=== PATIENT | male | born 1965 | race Caucasian/White ===

== ENCOUNTER → 2018-04-26 02:23 | Emergency (ER) | payer BC ==
[~2018-04-26 02:23] MED LIST: Acetaminophen TAB* 325 MG PO ONE
--- NOTE | 2018-04-26 02:47 | ED ---
Head Injury - HPI Summary HPI Summary: This patient is a 52 year old M presenting to [facility] with a chief complaint of head injury since 18:00 on 04/25/2018. While hiking, he stood up and hit his head on a tree limb. The patient rates the pain 7/10 in severity. Patient reports an abrasion on his head, "feeling dazed," a frontal headache, and light sensitivity. Patient denies LOC and vomiting. He is not on any anticoagulants. - History Of Current Complaint Chief Complaint: EDHeadInjury Stated Complaint: HEAD INJURY Time Seen by Provider: 04/26/18 02:34 Hx Obtained From: Patient Mechanism Of Injury: Blunt Trauma Onset/Duration: Started Hours Ago - 18:00 on 04/25/2018, Traumatic, Still Present Onset of Pain: Immediate, Post Accident Severity Currently: Moderate Severity Initially: Moderate Pain Intensity: 7 Pain Scale Used: 0-10 Numeric Aggravating Factor(s): Other: - Light Associated Signs And Symptoms: LOC (Time In Secs./Mins/Hrs) - Denies, LOC Duration Unknown - Denies, Headache - frontal, Other: - "feeling dazed," abrasion on his head, light sensitivity - Allergies/Home Medications Allergies/Adverse Reactions: Allergies Allergy/AdvReac Type Severity Reaction Status Date / Time No Known Allergies Allergy Verified 04/26/18 02:30 PMH/Surg Hx/FS Hx/Imm Hx Endocrine/Hematology History: Denies: Hx Diabetes, Hx Thyroid Disease Cardiovascular History: Denies: Hx Hypertension Respiratory History: Reports: Hx Asthma, Hx Sleep Apnea - previous hx SANDRITA, never treated, re-evaluation fo 08/2013 Denies: Hx Chronic Obstructive Pulmonary Disease (COPD) GI History: Denies: Hx Ulcer Musculoskeletal History: Reports: Other Musculoskeletal History - LEFT KNEE Sensory History: Reports: Hx Contacts or Glasses - GLASSES Denies: Hx Hearing Aid Opthamlomology History: Reports: Hx Contacts or Glasses - GLASSES Psychiatric History: Reports: Hx Depression - Wellbutrin - Surgical History Surgery Procedure, Year, and Place: lt knee surgery a year ago Hx Anesthesia Reactions: No Infectious Disease History: No Infectious Disease History: Denies: Hx Hepatitis, Hx Human Immunodeficiency Virus (HIV), Traveled Outside the [place] in Last 30 Days - Family History Known Family History: Negative: Cardiac Disease, Hypertension, Diabetes - Social History Alcohol Use: None Substance Use Type: Reports: None Review of Systems Positive: Other - "feeling dazed" Negative: Vomiting Positive: Other - Abrasion on his head Neurological: Other - Light sensitivity Positive: Headache - Frontal HUMPHREY. Negative: Syncope All Other Systems Reviewed And Are Negative: Yes Physical Exam - Summary Physical Exam Summary: VITAL SIGNS: Reviewed. GENERAL: Patient is a well-developed and nourished MALE who is lying comfortable in the stretcher. Patient is not in any acute respiratory distress. HEAD AND FACE: Mild swollen area with abrasion over the vertex of his head. No sinus tenderness. EYES: PERRLA, EOMI x 2, No injected conjunctiva, no nystagmus. EARS: Hearing grossly intact. Left ear has cerumen impaction. Right ear is normal. MOUTH: Oropharynx within normal limits. NECK: Supple, trachea is midline, no adenopathy, no JVD, no carotid bruit, no c- spine tenderness, neck with full ROM. CHEST: Symmetric, no tenderness at palpation LUNGS: Clear to auscultation bilaterally. No wheezing or crackles. CVS: Regular rate and rhythm, S1 and S2 present, no murmurs or gallops appreciated. ABDOMEN: Soft, non-tender. No signs of distention. No rebound no guarding, and no masses palpated. Bowel sounds are normal. EXTREMITIES: FROM in all major joints, no edema, no cyanosis or clubbing. NEURO: Alert and oriented x 3. No acute neurological deficits. Speech is normal and follows commands. SKIN: Dry and warm Triage Information Reviewed: Yes Vital Signs On Initial Exam: Initial Vitals Temp Pulse Resp BP Pulse Ox 97.3 F 102 16 126/72 99 04/26/18 02:25 04/26/18 02:25 04/26/18 02:25 04/26/18 02:25 04/26/18 02:25 Vital Signs Reviewed: Yes Diagnostics - Vital Signs Vital Signs Temp Pulse Resp BP Pulse Ox 04/26/18 02:25 97.3 F 102 16 126/72 99 - Laboratory Lab Statement: Any lab studies that have been ordered have been reviewed, and results considered in the medical decision making process. - CT Brain CT CT Interpretation Completed By: Radiologist - 03:51. Normal head/brain CT. ED Physician has reviewed this imaging report. Head Injury Course/Dx Assessment/Plan: This patient is a 52 year old M presenting to [facility] with a chief complaint of head injury since 18:00 on 04/25/2018. While hiking, he stood up and hit his head on a tree limb. CT Brain was normal. Patient will be discharged home with a dx of head injury. - Diagnoses Provider Diagnoses: Head injury Discharge - Sign-Out/Discharge Documenting (check all that apply): Patient Departure - D/C - Discharge Plan Condition: Stable Disposition: HOME Patient Education Materials: Head Injury (ED) Referrals: Ruben Barillas MD [Medical Doctor] - 2 Days Additional Instructions: Take Ultram as needed for the pain. RETURN TO THE EMERGENCY DEPARTMENT FOR CHANGING OR WORSENING SYMPTOMS. FOLLOW UP WITH PCP IN 1-2 DAYS. - Attestation Statements Document Initiated by Scribe: Yes Documenting Scribe: Melchor Juarez Provider For Whom Scribe is Documenting (Include Credential): Francesco Veloz MD Scribe Attestation: Melchor Florez, scribed for Francesco Veloz MD on 04/26/18 at 0413.
--- OUTSIDE RECORDS SUMMARY | 2018-04-26 02:47 | XMS REPORT ---
:1965 External Reference #:[id number] Author Organization [facility] Address [address] [place] [address] Phone [phone] Care Team Providers Name Role Phone Mira Prince Care Team Information Brazer Crawler Torch Unavailable Mira Prince Primary Care Physician Unavailable Payers Type Date Identification Numbers Payment Provider Subscriber Commercial Effective: Policy Number: [id number] [place] Plan Ghassan Jarrell 2010 Group Name: [facility] [address] PayID: [id number] [place] [address] Problems Date Description Provider Status Onset: 02/16/2016 Anxiety state Ghassan Elder M.D. Active Onset: 01/24/2014 Depressive disorder Bernardino Duggan M.D. Active Onset: 08/23/2013 Testicular hypofunction Ruben Barillas M.D. Active Onset: 08/23/2013 Vitamin D deficiency Ruben Barillas M.D. Active Onset: 08/23/2013 Disturbance in sleep behavior Ruben Barillas M.D. Active Onset: 07/21/2012 Pain in limb Ruben Barillas M.D. Active Onset: 07/21/2012 Anticoagulant Ruben Barillas M.D. 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 Active Onset: 01/13/2012 Mild recurrent major depression Ruben Barillas M.D. Active Onset: 01/13/2012 Asthma without status asthmaticus Ruben Barillas M.D. Active Family History Date Family Member(s) Problem(s) Comments Father 74 Mother 73 First Son 20 First Daughter 14 Second Brother 49 First Sister 45 Social History Type Date Description Comments Education Highest level completed, in writing Rhetoric and Doctorate composition. Marital Status 2006 Legal Status: Single dad. raising the kids with shared custody. 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 Cigarette Use Never Smoked Cigarettes ETOH Use Occasional almost none. Smoking Patient has never smoked Exercise Type/Frequency Exercises regularly 3-4 miles a day. General Hx Text Writing Allergies, Adverse Reactions, Alerts Date Description Reaction Status Severity Comments 01/13/2012 NKDA active Medications Medication Date Status Form Strength Qnty SIG Indications Ordering Provider Clomipramine HCL 08/01 Active Capsules 25mg Mira Hall 2017 Nadya Prince Lorazepam 07/09 Active Tablets 0.5mg 30tabs 1/2 to 1 F43.22 Odrota by mouth Varela, twice A[employer]ISUAL [employer]LECTIONS COORDINATOR daily Methylphenidate 04/06 Active Tablets 10mg 60tabs 08/23 to 1 Mira Hall HCL pill at [place] Prince M.D. daily. code b add Multivitamin 02/25 Active Tablets 1 by Unknown mouth every day Fish Oil 02/25 Active Capsules 1 po qd Concerta 02/01 Active Tablets ER 18mg 60tabs Take 1 R41.840 Mira Hall Tablet Suresh By Mouth M.DLaura Every Morning Maximum Daily Dose Of 1 Per Day Vitamin D2 08/23 Active Tablets 2000Unit 90tabs 1 po qd E55.9 Miranda A. /Misha Barillas M.D. Ventolin HFA 08/01 Active Aerosol 108(90Bas 18units inhale Dorota e) one to Varela, mcg/Act two A[employer]LE[employer] COORDINATOR puffs by mouth up to four times a day as needed for shortnes s of breath Diflucan 02/18 Hx Tablets 200mg 2tabs one B37.0 Dorota tablet Varela, - my mouth AUD[employer] VISUAL COLLECTIONS COORDINATOR 03/31 once, 2018 not improved repeat in 2 days. Fluconazole 04/04 Hx Tablets 200mg 2tabs Take one Dorota tab, Varela, - repeat AUDIO VISUAL COLLECTIONS COORDINATOR 06/02 in days if not improvin g Nystatin 03/16 Hx Suspension [id number] 200ml 1 t/ML teaspoon Yanira, - swish/sw LINKER UP 06/02 allow four times a day Buspirone HCL 02/28 Hx Tablets 7.5mg 60tabs 1 by F43.22 Mira Hall mouth Suresh, - twice M.D. 06/02 Clotrimazole/Bet 05/17 Hx Cream 1-0.05% 45gm apply Mira Hall amethasone thin Suresh, Dipropionate - layer M.D. 02/01 dailiy to groin Vitamin D3 05/17 Hx Capsules [id number] 12caps 1 by E55.9 Mira Hall mouth Suresh, - every M.D. 09/21 week 12wks Buspirone HCL 04/05 Hx Tablets 7.5mg 60tabs 1 by F43.23 Mira Hall mouth Suresh, - twice M.D. 05/17 Amoxicillin/Clav 06/10 Hx Tablets 875-125mg 14tabs 1 by Rachelle zarate /2014 mouth Darlow, Potassium - twice a M.D. Amoxicillin/Clav 05/22 Hx Tablets 875-125mg 20tabs 1 by Ninoska zarate /2013 mouth Hilsdorf, Potassium - twice a Afnp-C food Restoril 08/03 Hx Capsules 15mg 30caps 1 hs prn Ghassan Brenner /2012 for Jael, - sleep M.D. 01/24 call Bupropion HCL ER 08/24 Hx Tablets ER 150mg 270tabs Take 3 Bernardino Farfan (XL) 24HR Tablets Darlow, - By Mouth M.D. 02/01 Day Handicapped 07/21 Hx patient 729.5 Ruben Farfan Parking will Nargis, - need M.D. 01/24 [address]ap [address] for six months due to medical problems Warfarin Sodium 07/18 Hx Tablets 5mg 90tabs Take One Ruben Farfan Tablet Nargis, - By Mouth M.D. 08/03 Daily Or as Directed Enoxaparin 07/14 Hx Solution 90mg/0.9M 14units inject Miranda A. L once Nargis, - every 12 M.D. Bupropion HCL XL 06/28 Hx Tablets ER 300mg 90tabs 1 po qd Miranda . 24HR Nargis, - M.D. 08/24 Naproxen 05/22 Hx Tablets 500mg 60tabs 1 po bid 719.46 Nayla prn pain Aydee, - LINKER UP 07/21 take with food Cane 05/22 Hx 1units Dx: Knee 719.46 injury Aydee, - LINKER UP 01/24 Bupropion HCL XL 04/28 Hx Tablets ER 150mg 60tabs 1 po qd Ghassan J. 24HR for one Jael, - week M.D. 06/28 then tabs daily Bupropion HCL XL 01/23 Hx Tablets ER 150mg 60tabs 1 po qd Miranda A 24HR for one Nargis, - week M.D. 01/26 then tabs daily Ventolin HFA 01/12 Hx Aerosol 108(90Bas 1units inhale e) mcg/ac one to Nargis, - two M.D. 01/26 puffs by mouth up to four times a day as needed for shortnes s of breath Cephalexin 01/12 Hx Tablets 500mg 30tabs one tab 682.9 . po tid Nargis, - for ten M.D. Cyclobenzaprine 01/12 Hx Tablets 10mg 30tabs take 1 723.4 Miranda A. HCL tablet Nargis, - by mouth M.D. 01/26 evening if needed for muscle spasm Medrol Dosepak 01/12 Hx Tablets 4mg 1tabs use as 723.4 Miranda A. directed Nargis, - M.D. 01/26 Hydrocodone/Acet 01/12 Hx Tablets 5-500mg 50tabs 1 po 723.4 Miranda A. aminophen q4-6h Nargis, - prn pain M.D. 01/26 Zoloft 12/21 Hx Tablets 50mg 30tabs 1 po qd Pinky, - Afnp-C 01/12 Singulair 08/11 Hx Tablets 10mg 30tabs 1 PO qd 493.90 Pinky, - Afnp-C 01/26 Ambien 08/11 Hx Tablets 5mg 30tabs 1 po qhs 780.54 prn Pinky, - sleep Afnp-C 01/12 Zoloft 04/16 Hx Tablets 50mg 1 po qd Bernardino A. Urban, - M.D. 04/16 Zoloft 04/16 Hx Tablets 25mg 60tabs 2 po qd Pinky, - Afnp-C 08/11 Zoloft 03/15 Hx Tablets 25mg 60tabs 1 po qd Bernardino A for 2 Darlow, - weeks M.D. 04/16 increase to 2 qd, in the am Albuterol Mdi 02/09 Hx 2units 2 puffs Bernardino A. q4h prn Urban, - cough or M.D. 01/12 wheeze Augmentin XR 10/08 Hx 1000mg Samples 2 po bid Anum Jose, - LINKER UP-C 03/15 Robitussin ac 10/08 Hx 40Z 1 tsp po Anum q4h prn Jose, - LINKER UP-C 03/15 Ultracet 10/08 Hx 37.5/325 180units 1-2 po Anum qid prn Jose, - LINKER UP-C 03/15 Ambien 07/30 Hx 5mg 30units 1 qhs Bernardino A. prn Urban, - M.D. 03/15 Biaxin 05/29 Hx 500mg 20units 1 po bid Lewis, - LINKER UP 06/08 Biaxin XL 05/28 Hx 500mg 18units Lewis, - LINKER UP 05/29 one p.o. bid for ten days Augmentin 02/27 Hx 875mg 28units 1 po bid Sarita /2004 daniel Guevara 05/28 M.DLaura Prednison 02/27 Hx 5mg 25units 6 Tabs Sarita /2004 PO qd X von - 1 Day, Felten, 05/28 Then 5 M.D. Tabs PO qd X1 Day, Then 4 Tabs PO qd X 1 Day, Then 3 Tabs PO qd X 1 Day, Then 2 Tabs PO qd Wellbutrin XL 02/20 Hx 150mg 30units 1 qd Bernardino A. Vonnie Duggan M.D. 05/28 Ambien 07/16 Hx 5mg 30units 1 QHS Bernardino A. prn Vonnie Duggan M.D. 05/28 Lexapro 08/30 Hx 10mg 30units 1 po qd Bernardino A. Vonnie Duggan M.D. 02/20 Buspar 08/30 Hx 10mg 60units 1 PO bid Bernardino A. Vonnie Duggan M.D. 07/16 Tigan 06/05 Hx 200mg 20units 1 pr Q6H Bernardino A. prn N/V Vonnie Duggan M.D. 06/10 Cipro 04/07 Hx Tabs 500mg 14tabs 1 PO bid Bernardino A. Vonnie Duggan M.D. 04/14 Medrol Dosepack 04/07 Hx 4mg 1units as Bernardino A. Directed Vonnie Duggan M.D. 04/19 Zithromax 12/16 Hx 250mg 6units 2 Tabs Fortunato T. Day 1 Vonnie Sharma M.D. 04/07 1 Tab qd Days 2 Thru 5 Serevent Inhaler 05/26 Hx 50mg as Dir Fortunato T. Vonnie Sharma M.D. 06/05 Levaquin 05/24 Hx 500mg 7units 1 qd Bernardino A. Vonnie Duggan M.D. 05/31 Duratuss GP 05/19 Hx 20units 1 PO Q Bernardino A. 12 HR Urban, - prn Head M.DLaura 05/29 Conges on Biaxin 05/18 Hx Tabs 500mg 20tabs 1 PO bid Nayla Aydee, - LINKER UP 05/28 Teagan 12/09 Hx 180mg 30units 1 qd Bernardino A. /2000 Vonnie Duggan M.D. 01/12 Nasacort Aq 12/09 Hx 1units 1 [place] Bernardino A. Inhaler /2000 In Each Urban - Nostril M.DLaura 06/05 Patanol Eye gtts 12/09 Hx 5cc 1-2 gtts Bernardino A. tid prn Vonnie Duggan.DLaura 06/05 Ventolin 08/12 Hx 3units 2 Puffs Bernardino A. qid prn Vonnie Duggan.DLaura 05/28 Accolate 08/12 Hx 10mg 60units 1 PO bid Bernardino A. /1999 Vonnie Duggan M.D. 08/12 Zoloft 08/12 Hx 100mg 135units 1-08/23 Bernardino A. /1999 Q.D Vonnie Duggan M.D. 08/30 Singulair 08/12 Hx 10mg 90units 1 PO QHS Bernardino A. /1999 Vonnie Duggan M.D. 02/20 Oxycodone/Acetam Hx Tablets 80tabs Unknown inophen /0000 - 10/20 Buspirone HCL 00 Hx Tablets 15mg take one F43.23 Unknown /0000 tablet - by mouth 02/[address] Rosas. Medications Administered in Office Medication Date Status Form Strength Qnty SIG Indications Ordering Provider Injection 04/07/ Administered Injection Bernardino Farfan Subcutaneous Or 2001 Andre Duggan M.D. Immunizations CPT Code Status Date Vaccine Lot # [id number] Given 05/17/2016 Tdap Tetanus, W Pertussis [id number] Given 08/20/2003 MMR Virus Immunization [id number] Given 08/20/2003 MMR Virus Immunization Vital Signs Date Vital Result Comment 03/31/2018 BP Systolic 124 mmHg BP Diastolic 82 mmHg Heart Rate 68 /min Body Temperature 97.5 F Respiratory Rate 15 /min Height 67 inches 5'7" Weight 183.00 lb BMI (Body Mass Index) 28.7 kg/m2 02/18/2018 BP Systolic 122 mmHg BP Diastolic 82 mmHg Heart Rate 66 /min Body Temperature 97.8 F Respiratory Rate 18 /min Height 67 inches 5'7" Weight 193.00 lb BMI (Body Mass Index) 30.2 kg/m2 07/09/2017 BP Systolic 120 mmHg BP Diastolic 70 mmHg Heart Rate 78 /min Body Temperature 98.1 F Respiratory Rate 16 /min Height 67 inches 5'7" Weight 188.12 lb BMI (Body Mass Index) 29.5 kg/m2 06/03/2017 BP Systolic 110 mmHg BP Diastolic 76 mmHg Heart Rate 104 /min Height 67 inches 5'7" Weight 189.50 lb BMI (Body Mass Index) 29.7 kg/m2 03/16/2017 BP Systolic 116 mmHg BP Diastolic 78 mmHg Heart Rate 66 /min Body Temperature 97.9 F Respiratory Rate 16 /min Height 67 inches 5'7" Weight 186.38 lb BMI (Body Mass Index) 29.2 kg/m2 02/28/2017 BP Systolic 134 mmHg BP Diastolic 80 mmHg Heart Rate 78 /min Body Temperature 98.1 F Respiratory Rate 16 /min Height 67 inches 5'7" Weight 185.50 lb BMI (Body Mass Index) 29.1 kg/m2 02/01/2017 BP Systolic 110 mmHg BP Diastolic 70 mmHg Heart Rate 68 /min Body Temperature 97.9 F Respiratory Rate 18 /min Height 67 inches 5'7" Weight 186.00 lb BMI (Body Mass Index) 29.1 kg/m2 05/17/2016 BP Systolic 116 mmHg BP Diastolic 70 mmHg Heart Rate 72 /min Body Temperature 98.1 F Respiratory Rate 16 /min Height 67 inches 5'7" Weight 180.00 lb BMI (Body Mass Index) 28.2 kg/m2 04/05/2016 BP Systolic 120 mmHg BP Diastolic 70 mmHg Heart Rate 64 /min Body Temperature 98.0 F Respiratory Rate 18 /min Height 67 inches 5'7" Weight 180.00 lb BMI (Body Mass Index) 28.2 kg/m2 02/26/2016 BP Systolic 110 mmHg BP Diastolic 70 mmHg Heart Rate 80 /min Body Temperature 98.2 F Respiratory Rate 18 /min Height 67 inches 5'7" Weight 175.00 lb BMI (Body Mass Index) 27.4 kg/m2 02/16/2016 BP Systolic 118 mmHg BP Diastolic 80 mmHg Heart Rate 74 /min Body Temperature 97.9 F Respiratory Rate 16 /min Height 67 inches 5'7" Weight 175.00 lb BMI (Body Mass Index) 27.4 kg/m2 06/10/2015 BP Systolic 140 mmHg BP Diastolic 78 mmHg Heart Rate 80 /min Body Temperature 97.7 F Respiratory Rate 16 /min Height 67 inches 5'7" Weight 197.00 lb BMI (Body Mass Index) 30.9 kg/m2 12/24/2014 BP Systolic 100 mmHg BP Diastolic 70 mmHg Heart Rate 68 /min Body Temperature 98.2 F Respiratory Rate 16 /min Height 67 inches 5'7" Weight 192.00 lb BMI (Body Mass Index) 30.1 kg/m2 05/22/2014 BP Systolic 120 mmHg BP Diastolic 80 mmHg Heart Rate 68 /min Body Temperature 98.6 F Respiratory Rate 18 /min Height 67 inches 5'7" Weight 189.00 lb BMI (Body Mass Index) 29.6 kg/m2 02/25/2014 BP Systolic 108 mmHg BP Diastolic 70 mmHg Heart Rate 76 /min Body Temperature 97.3 F Respiratory Rate 12 /min Height 67 inches 5'7" Weight 186.00 lb BMI (Body Mass Index) 29.1 kg/m2 01/24/2014 BP Systolic 124 mmHg BP Diastolic 80 mmHg Heart Rate 88 /min Body Temperature 97.6 F Respiratory Rate 12 /min Height 67 inches 5'7" Weight 184.00 lb BMI (Body Mass Index) 28.8 kg/m2 09/24/2013 BP Systolic 120 mmHg BP Diastolic 78 mmHg Heart Rate 76 /min Body Temperature 97.4 F Respiratory Rate 18 /min Height 67 inches 5'7" Weight 189.00 lb BMI (Body Mass Index) 29.6 kg/m2 08/23/2013 BP Systolic 118 mmHg BP Diastolic 88 mmHg Heart Rate 74 /min Body Temperature 98.1 F Respiratory Rate 16 /min Height 67 inches 5'7" Weight 198.00 lb BMI (Body Mass Index) 31.0 kg/m2 08/03/2013 BP Systolic 124 mmHg BP Diastolic 80 mmHg Heart Rate 97.6 /min Body Temperature 84.0 F Respiratory Rate 17 /min O2 % BldC Oximetry 97 % Height 67 inches 5'7" Weight 199.00 lb BMI (Body Mass Index) 31.2 kg/m2 10/20/2012 BP Systolic 116 mmHg BP Diastolic 80 mmHg Heart Rate 88 /min Body Temperature 96.4 F Height 67 inches 5'7" Weight 196.00 lb BMI (Body Mass Index) 30.7 kg/m2 07/21/2012 BP Systolic 120 mmHg BP Diastolic 80 mmHg Heart Rate 84 /min Body Temperature 97.8 F Height 67 inches 5'7" 06/28/2012 BP Systolic 120 mmHg BP Diastolic 78 mmHg Heart Rate 76 /min Body Temperature 97.8 F Height 67 inches 5'7" 05/22/2012 BP Systolic 120 mmHg BP Diastolic 70 mmHg Heart Rate 80 /min Body Temperature 98.1 F Height 67 inches 5'7" Weight 200.00 lb BMI (Body Mass Index) 31.3 kg/m2 01/27/2012 BP Systolic 132 mmHg BP Diastolic 92 mmHg Heart Rate 96 /min Body Temperature 98.1 F Height 67 inches 5'7" Weight 195.00 lb BMI (Body Mass Index) 30.5 kg/m2 01/13/2012 BP Systolic 102 mmHg BP Diastolic 78 mmHg Heart Rate 90 /min Body Temperature 98.8 F Weight 196.00 lb 08/11/2006 BP Systolic 122 mmHg BP Diastolic 82 mmHg Heart Rate 82 /min Weight 208.00 lb 09/27/2005 BP Systolic 120 mmHg BP Diastolic 82 mmHg Heart Rate 80 /min Body Temperature 98.4 F Weight 192.00 lb 03/15/2005 BP Systolic 112 mmHg BP Diastolic 82 mmHg Heart Rate 68 /min Weight 186.00 lb 10/08/2004 BP Systolic 120 mmHg BP Diastolic 80 mmHg Body Temperature 98.2 F 07/13/2004 BP Systolic 124 mmHg BP Diastolic 70 mmHg Weight 194.00 lb 05/28/2004 BP Systolic 124 mmHg BP Diastolic 84 mmHg Heart Rate 54 /min Body Temperature 98.2 F Weight 202.00 lb 02/28/2004 BP Systolic 120 mmHg BP Diastolic 70 mmHg Heart Rate 72 /min Body Temperature 97.3 F Weight 197.00 lb 02/21/2004 BP Systolic 124 mmHg BP Diastolic 80 mmHg Heart Rate 76 /min Weight 197.00 lb 08/28/2003 Body Temperature 98.5 F 07/16/2003 BP Systolic 112 mmHg BP Diastolic 88 mmHg Heart Rate 68 /min 08/30/2002 BP Systolic 132 mmHg BP Diastolic 78 mmHg Heart Rate 72 /min Respiratory Rate 18 /min Weight 194.00 lb 06/05/2002 BP Systolic 90 mmHg BP Diastolic 70 mmHg Body Temperature 97.7 F Weight 187.00 lb 04/07/2002 BP Systolic 110 mmHg BP Diastolic 80 mmHg Heart Rate 100 /min Body Temperature 98.1 F 12/16/2001 BP Systolic 122 mmHg BP Diastolic 72 mmHg Body Temperature 97.8 F Weight 194.00 lb 05/26/2001 BP Systolic 122 mmHg BP Diastolic 70 mmHg Heart Rate 108 /min 05/18/2001 BP Systolic 110 mmHg BP Diastolic 88 mmHg Heart Rate 88 /min Body Temperature 98.2 F Respiratory Rate 18 /min Weight 193.00 lb 12/09/2000 BP Systolic 102 mmHg BP Diastolic 70 mmHg Body Temperature 97.4 F Weight 195.00 lb 11/12/2000 BP Systolic 130 mmHg BP Diastolic 70 mmHg Heart Rate 80 /min Body Temperature 98.5 F Weight 198.00 lb 08/12/2000 BP Systolic 114 mmHg BP Diastolic 80 mmHg Heart Rate 88 /min Weight 192.00 lb Results Test Date Test Result H/L Range Note Laboratory test finding 07/09/2017 Thyroxine (T4) Free, 1.14 ng/dL 0.82- 1.77 1 Direct, S Metabolic Panel (14), 07/09/2017 Glucose, Serum 90 mg/dL 65-99 1 Comprehensive BUN 17 mg/dL 6-24 1 Creatinine, Serum 0.89 mg/dL 0.76-1.27 1 eGFR If NonAfricn Am 98 mL/min/1.73 >59 1 eGFR If Africn Am 114 mL/min/1.73 >59 1 BUN/Creatinine Ratio 19 9-20 1 Sodium, Serum 141 mmol/L 134-144 1 Potassium, Serum 5.2 mmol/L 3.5-5.2 1 Chloride, Serum 101 mmol/L 96-106 1 Carbon Dioxide, Total 28 mmol/L 18-29 1 Calcium, Serum 9.7 mg/dL 8.7-10.2 1 Protein, Total, Serum 7.4 g/dL 6.0-8.5 1 Albumin, Serum 4.8 g/dL 3.5-5.5 1 Globulin, Total 2.6 g/dL 1.5-4.5 1 A/G Ratio 1.8 1.2-2.2 1 Bilirubin, Total 0.4 mg/dL 0.0-1.2 1 Alkaline Phosphatase, S 77 IU/L 39-117 1 Ast (Sgot) 29 IU/L 0-40 1 Alt (SGPT) 46 IU/L High 0-44 1 Urinalysis, Routine With Micro On 07/09/2017 Specific [place] 1.024 1.005 -1.030 1 Pos pH 7.0 5.0-7.5 1 Urine-Color Yellow Yellow 1 Appearance Clear Clear 1 WBC Esterase Negative Negative 1 Protein Negative Negative/Trace 1 Glucose Negative Negative 1 Ketones Negative Negative 1 Occult Blood Negative Negative 1 Bilirubin Negative Negative 1 Urobilinogen,Semi-Qn 0.2 EU/dL 0.2-1.0 1 Nitrite, Urine Negative Negative 1 Microscopic Examination See Comment: 1, 2 Laboratory test finding 07/09/2017 TSH 1.560 uIU/mL 0.450-4.500 1 Triiodothyronine,Free,Serum 3.0 pg/mL 2.0-4.4 1 CBC Electronic (Fma) 07/09/2017 WBC 9.0 3.6-9.6 RBC 5.47 3.90-5.70 Hemoglobin (Fma/CMC/CTX) 16.4 g/dL 12.1 - 17.2 Hematocrit (Fma/CMC/CTX) 49.0 % 36.1 - 50.3 Platelets 239 10^3/ul 150-400 Lymph% 28.9 % 17.0-48.0 Mixed% 5.0 Neutrophils % 66.1 Mean Corpuscular Vol 89 82.2-97.4 Mean Corpuscular Hemoglobin 30.0 27.6-33.3 Mean Corpuscular Hemo Concen 33.5 32.0-36.0 RDW 13.5 11.6-13.7 Mean Platelet Volume 8.3 5.5-11.0 Laboratory test 03/16/2017 Wet Prep (Fma,CMC,CX) hyphae noted finding Laboratory test 05/10/2016 Vitamin D, 25-Hydroxy 26.5 ng/mL Low 30.0- 100.0 3 finding PDF [id number] SEE IMAGE CBC With Differential/Platelet 05/10/2016 WBC 7.9 x10E3/uL 3.4-10.8 RBC 5.26 x10E6/uL 4.14-5.80 Hemoglobin 15.3 g/dL 12.6-17.7 Hematocrit 46.6 % 37.5-51.0 MCV 89 fL 79-97 MCH 29.1 pg 26.6-33.0 MCHC 32.8 g/dL 31.5-35.7 RDW 13.2 % 12.3-15.4 Platelets 261 x10E3/uL 150-379 Neutrophils 59 % Lymphs 27 % Monocytes 10 % Eos 3 % Basos 1 % Immature Cells [facility] Neutrophils (Absolute) 4.6 x10E3/uL 1.4-7.0 Lymphs (Absolute) 2.2 x10E3/uL 0.7-3.1 Monocytes(Absolute) 0.8 x10E3/uL 0.1-0.9 Eos (Absolute) 0.2 x10E3/uL 0.0-0.4 Baso (Absolute) 0.1 x10E3/uL 0.0-0.2 Immature Granulocytes 0 % Immature Grans (Abs) 0.0 x10E3/uL 0.0-0.1 NRBC [facility] Hematology Comments: [facility] Laboratory test finding 05/10/2016 TSH 3.100 uIU/mL 0.450-4.500 Thyroxine (T4) Free, Direct, S 0.98 ng/dL 0.82-1.77 Lipid Panel 05/10/2016 Cholesterol, Total 222 mg/dL High 100-199 Triglycerides 156 mg/dL High 0-149 HDL Cholesterol 46 mg/dL >39 4 VLDL Cholesterol Celestino 31 mg/dL 5-40 LDL Cholesterol Calc 145 mg/dL High 0-99 Comment: [facility] Metabolic Panel (14), Comprehensive 05/10/2016 Glucose, Serum 104 mg/dL High 65-99 BUN 14 mg/dL 6-24 Creatinine, Serum 1.06 mg/dL 0.76-1.27 eGFR If NonAfricn Am 81 mL/min/1.73 >59 eGFR If Africn Am 93 mL/min/1.73 >59 BUN/Creatinine Ratio 13 9-20 Sodium, Serum 140 mmol/L 134-144 Potassium, Serum 5.0 mmol/L 3.5-5.2 Chloride, Serum 99 mmol/L 97-108 Carbon Dioxide, Total 24 mmol/L 18-29 Calcium, Serum 9.6 mg/dL 8.7-10.2 Protein, Total, Serum 6.8 g/dL 6.0-8.5 Albumin, Serum 4.6 g/dL 3.5-5.5 Globulin, Total 2.2 g/dL 1.5-4.5 A/G Ratio 2.1 1.1-2.5 Bilirubin, Total 0.4 mg/dL 0.0-1.2 Alkaline Phosphatase, S 84 IU/L 39-117 Ast (Sgot) 25 IU/L 0-40 Alt (SGPT) 35 IU/L 0-44 Influenza A&B-fma 06/10/2015 Influenza A neg Influenza B neg Testosterone Free & Total 12/06/2014 Free Testosterone ng/dl 14 ng/dL 9- 30 5, 6 Testosterone 352 ng/dL 240-950 5, 7 Laboratory test finding 12/06/2014 Luteinizing Hormone 3.0 IU/mL 2-12 5 , 8 Follicle Stimulating Hormone 7.3 IU/mL 1-20 5, 9 Pthi 12/06/2014 PTH Intact 14.3 pmol/L High 1.3-9.3 5 Calcium (PTH Intact) 9.4 mg/dL 8.6-10.3 5 Comp Metabolic Panel 12/06/2014 Sodium 139 mmol/L 133-145 5 Potassium 4.1 mmol/L 3.5-5.0 5 Chloride 104 mmol/L 101-111 5 Co2 Carbon Dioxide 30 mmol/L 22-32 5 Anion Gap 5 mmol/L 2-11 5 Glucose 111 mg/dL High 70-100 5 Blood Urea Nitrogen 16 mg/dL 6-24 5 Creatinine 1.14 mg/dL 0.67-1.17 5 BUN/Creatinine Ratio 14.0 8-20 5 Calcium 9.4 mg/dL 8.6-10.3 5 Total Protein 6.9 g/dL 6.4-8.9 5 Albumin 4.6 g/dL 3.2-5.2 5 Globulin 2.3 g/dL 2-4 5 Albumin/Globulin Ratio 2.0 1-3 5 Total Bilirubin 0.70 mg/dL 0.2-1.0 5 Alkaline Phosphatase 68 U/L 34-104 5 Alt 33 U/L 7-52 5 Ast 22 U/L 13-39 5 Egfr Non- 68.0 >60 5 Egfr 87.4 >60 5, 10 CBC Auto Diff 12/06/2014 White Blood Count 8.3 10^3/uL 4.8-10.8 5 Red Blood Count 4.98 10^6/uL 4.0-5.4 5 Hemoglobin 15.6 g/dL 14.0-18.0 5 Hematocrit 45 % 42-52 5 Mean Corpuscular Volume 90 fL 80-94 5 Mean Corpuscular Hemoglobin 31 pg 27-31 5 Mean Corpuscular HGB Conc 35 g/dL 31-36 5 Red Cell Distribution Width 13 % 10.5-15 5 Platelet Count 256 10^3/uL 150-450 5 Mean Platelet Volume 10 um3 7.4-10.4 5 Abs Neutrophils 5.5 10^3/uL 1.5-7.7 5 Abs Lymphocytes 1.8 10^3/uL 1.0-4.8 5 Abs Monocytes 0.6 10^3/uL 0-0.8 5 Abs Eosinophils 0.2 10^3/uL 0-0.6 5 Abs Basophils 0.1 10^3/uL 0-0.2 5 Abs Nucleated RBC 0.01 10^3/uL 5 Granulocyte % 66.9 % 38-83 5 Lymphocyte % 21.3 % Low 25-47 5 Monocyte % 7.9 % 1-9 5 Eosinophil % 2.7 % 0-6 5 Basophil % 1.2 % 0-2 5 Nucleated Red Blood Cells % 0.1 5 Laboratory test 12/06/2014 TSH (Thyroid 2.02 IU/mL 0.34-5.60 5, 11 finding Stimulating Horm) Vitamin D, 25 Hydroxy 12/06/2014 25-Hydroxy Vitamin D2 <4.0 ng/mL 5 25-Hydroxy Vitamin D3 21 ng/mL 5 25-Hydroxy Vitamin D Total 21 ng/mL 5, 12 Testosterone Free & Total 01/24/2014 Free Testosterone ng/dl 11 ng/dL 9- 30 13 Testosterone 306 ng/dL 240-950 14 Laboratory test finding 08/08/2013 Vitamin D, 25 Oh 8.1 ng/mL Low 30.0- 100.0 15, 16 Ferritin 378.5 ng/ml High 22.0-322.0 15 Egfr (Calculated) 08/08/2013 Estimated GFR (CALCULATED) 15 Egfr >60 15, 17 Egfr, -Vietnamese >60 15, 18 Laboratory test finding 08/08/2013 Testosterone, Serum 207 ng/dL Low 348- 1197 15 Comprehensive Metabolic 08/08/2013 Glucose 71 mg/dL 70-100 15 BUN 13 mg/dL 5-21 15 Creatinine, Serum 1.02 mg/dL 0.60-1.30 15 Sodium 140 mmol/L 136-146 15 Potassium 4.4 mmol/L 3.5-5.3 15 Chloride 103 mmol/L 98-110 15 Carbon Dioxide 29 mmol/L 20-32 15 Albumin 4.5 g/dL 3.5-4.7 15 Protein, Total 7.4 g/dL 6.4-8.3 15 Calcium 9.3 mg/dL 8.4-10.4 15 Alkaline Phosphatase 94 U/L 10-118 15 Sgot (Ast) 26 U/L 3-40 15 SGPT (Alt) 38 U/L 7-50 15 Bilirubin, Total 0.40 mg/dL 0.30-1.20 15 CBC 08/08/2013 WBC 8.9 x10E3/uL 4.3-10.9 15 RBC 5.02 x10E6/uL 4.70-6.20 15 Hemoglobin 15.6 g/dL 13.0-17.0 15 Hematocrit 45.2 % 39.0-50.0 15 MCV 90.0 fl 82.0-98.0 15 MCH 31.1 pg 27.5-33.5 15 MCHC 34.5 g/dL 32.0-36.0 15 RDW 12.9 % 11.5-14.5 15 Platelet Count 268 x10E3/uL 130-400 15 MPV 12.4 fl 8.6-12.6 15 Segmented Neutrophils 64.0 % 44.0-74.0 15 Band 0.0 % 0.0-4.0 15 Lymphocytes 23.0 % 15.0-45.0 15 Monocytes 8.0 % 2.0-13.0 15 Eosinophils 4.0 % 0.0-6.0 15 Basophils 1.0 % 0.0-2.0 15 Neutrophil Absolute 5.7 x10E3/uL 1.4-7.0 15 Lymphocytes Absolute 2.0 x10E3/uL 1.0-3.4 15 Monocyte Absolute 0.7 x10E3/uL 0.2-1.0 15 Eosinophil Absolute 0.4 x10E3/uL 0.0-0.5 15 Basophil Absolute 0.1 x10E3/uL 0.0-0.2 15 Laboratory test finding 08/08/2013 TSH (Thyrotropin) 0.910 uIU/ml 0.350- 5.500 15 Laboratory test finding 10/20/2012 D Dimer Quantitative <100 ng/mL 0.0- 400 Inr (Fma) 2.0 2.0-3.0 Factor II Dna Analysis 10/20/2012 Factor II, Dna Analysis SEE NOTE 19, 20 Laboratory test finding 10/20/2012 Antithrombin III Activity 107 % 75- 135 19 Homocysteine 12.1 umol/L 0.0-15.0 19 Von Willebrand Profile 10/20/2012 Factor VIII Activity 102 % 50-150 19 von Willebrand Factor (vWF) Ag 126 % 50-150 19 vWF Activity 108 % 50-170 19 Lupus Anticoag 10/20/2012 PTT 42.1 seconds High 23.7-35.5 19 Reflex Dilute Juan's 10/20/2012 dRVVT 45.9 sec 0.0-55.1 19 Viper Venom Anticardiolipin 10/20/2012 Anticardiolipin <9 GPLU/mL 0-14 19, 21 Iga/Igg/Igm QN Ab,IgG,Qn Anticardiolipin Ab,IgM,Qn 13 MPLU/mL High 0-12 19, 22 Anticardiolipin Ab,IgA,Qn <9 APLU/mL 0-11 19, 23 Laboratory test finding 09/15/2012 Inr (Fma) 2.3 2.0-3.0 Laboratory test finding 08/30/2012 Inr (Fma) 1.8 Low 2-3 Laboratory test finding 08/18/2012 Inr (Fma) 1.7 Low 2.0-3.0 Laboratory test finding 08/08/2012 Inr (Fma) 1.6 Low 2-3 Laboratory test finding 07/31/2012 Inr (Fma) 2.3 2.0-3.0 Laboratory test finding 07/24/2012 Inr (Fma) 2.1 2.0-3.0 Laboratory test finding 07/21/2012 Inr (Fma) 2.3 2-3 Laboratory test finding 07/17/2012 Inr (Fma) 1.6 Low 2-3 Laboratory test finding 07/14/2012 Inr (Fma) 1.2 Low 2-3 CBC Electronic (Fma) 08/28/2003 WBC 9.6 3.6-9.6 Lymphocytes 29.7 % 20.5 - 51.1 Monocytes 4.5 % 1.7-9.3 Granulocytes 65.8 % 42.2 - 75.2 Lymphocytes 2.9 10^3/uL 0.7 - 4.9 Monocytes 0.4 10^3/uL 0.1 - 0.9 Granulocytes 6.3 10^3/uL 1.5 - 7.2 RBC 5.04 3.90-5.70 Hemoglobin (Fma/CMC/CTX) 14.9 g/dL 12.1 - 17.2 Hematocrit (Fma/CMC/CTX) 44.2 % 36.1 - 50.3 Mean Corpuscular Vol 87.6 82.2-97.4 Mean Corpuscular Hemaglobin 29.6 27.6-33.3 Mean Corpuscular Hemo Concen 33.8 33.0-35.5 RDW 13.1 11.6-13.7 Platelets 256. 10^3/ul 150-400 Mean Platelet Volume 8.6 7.4-10.4 Comp Metabolic ([facility]) 08/28/2003 Glucose, Serum (Fma/CMC/CTX) 106 mg/dL 70 -118 BUN (Fma/CMC/Centrex) 15 mg/dL 6-26 Creatinine (Fma/CMC/CTX) 0.8 mg/dL 0.6-1.4 BUN/Creatinin Ratio 18.2 8.0-36 Sodium 141 134-149 Potassium 4.5 3.6-5.5 Chloride 102 mEq/L 94-112 Co2 26 21-32 Calcium (Fma/CMC/Centrex) 9.5 mg/dL 8.6-10.0 Total Protein 7.6 g/dL 6.3-8.1 Albumin (Fma/CMCC/Centrex) 5.0 3.8-5.5 Globulin 2.6 2.0-4.8 A/G Ratio (Fma/CMC/Centrex) 1.9 0.6-2.2 Alkaline Phosphatase (F/C/CTX) 86 U/L 30-110 Alt (SGPT) 53 High 10-40 24 Ast (Sgot) (Fma/CMC/Centrex) 27 U/mL 5-34 Bilirubin, Total 0.4 mg/dL 0.2-1.3 Basic Metabolic ([facility]) 08/12/2000 BUN 16 7-26 Calcium 7.8 mg/dL 7.4-9.2 Creatinine 0.6 mg/dL 0.6-1.4 Glucose 71 mg/dL 70 - 118 Sodium 147 134-149 Potassium 4.8 3.6-5.5 Chloride 106 mEq/L 94-112 Co2 29 21-32 Laboratory test finding 08/12/2000 TSH 2.78 0.4-4.2 CBC With Diff ([facility]) 08/12/2000 WBC 8.7 3.6-9.6 Lymphocytes 28.2 % 20.5 - 51.1 Monocytes 2.0 % 1.7 - 9.3 Granulocytes 69.8 % 42.2 - 75.2 Lymphocytes 2.5 10^3/uL 0.7 - 4.9 Monocytes 0.2 10^3/uL 0.1 - 0.9 Granulocytes 6.1 10^3/uL 1.5 - 7.2 RBC 5.37 3.90-5.70 Hemoglobin 15.9 g/dL 12.1 - 17.2 Hematocrit 46.7 % 36.1 - 50.3 Mean Corpuscular Vol 87.0 82.2-97.4 Mean Corpuscular Hemaglobin 29.6 27.6-33.3 Mean Corpuscular Hemo Concen 34.0 33.0-34.8 RDW 12.7 11.6-13.7 Platelets 253 10^3/ul 150-400 Mean Platelet Volume 8.9 7.4-10.4 1 1 sst 2 Microscopic follows if indicated. 3 Vitamin D deficiency has been defined by the [place] [employer] and an Endocrine Society practice guideline as a level of serum 25-OH vitamin D less than 20 ng/mL (1,2). The Endocrine Society went on to further define vitamin D insufficiency as a level between 21 and 29 ng/mL (2). 1. IOM ([place] [employer]). 2010. Dietary reference intakes for calcium and D. [place]: The National Academies Press. 2. Juan MF, Tobi NC, Lew HUMPHREY, et al. Evaluation, treatment, and prevention of vitamin D deficiency: an Endocrine Society clinical practice guideline. JCEM. 2010; 96(7):1911-30. 4 According to ATP-III Guidelines, HDL-C >59 mg/dL is considered a negative risk factor for CHD. 5 FASTING split specimen REFRIGERATED 2 SST 1 POUR OFF SERUM FROM SST 6 ADDITIONAL INFORMATION Testing performed by [facility]. 7 ADDITIONAL INFORMATION Testing performed by Liquid Chromatography-Tandem Mass Spectrometry (LC-MS/MS). Test Performed by: [address] [address] Operating System Designer: Chuckie Leblanc II, M.D., Ph.D. 8 FASTING split specimen REFRIGERATED 2 SST 1 POUR OFF SERUM FROM SST 2 POUR OFF SERUM FROM RTT 1 LAV FROZEN 1 POUR OFF SERUM FROM RTT 9 FASTING split specimen REFRIGERATED 2 SST 1 POUR OFF SERUM FROM SST 2 POUR OFF SERUM FROM RTT 1 LAV FROZEN 1 POUR OFF SERUM FROM RTT 10 Because ethnic data is not always readily available, this report includes an eGFR for both -Americans and non- Americans. The National Kidney Disease Education Program (NKDEP) does not endorse the use of the MDRD equation for patients that are not between the ages of 18 and 70, are , have extremes of body size, muscle mass, or nutritional status, or are non- or non-. According to the National Kidney Foundation, irrespective of diagnosis, the stage of the disease is based on the level of kidney function: Stage Description GFR(mL/min/1.73 m(2)) 1 Kidney damage with normal or decreased GFR 90 2 Kidney damage with mild decrease in GFR 60-89 3 Moderate decrease in GFR 30-59 4 Severe decrease in GFR 15-29 5 Kidney failure <15 (or dialysis) 11 FASTING split specimen REFRIGERATED 2 SST 1 POUR OFF SERUM FROM SST 2 POUR OFF SERUM FROM RTT 1 LAV FROZEN 1 POUR OFF SERUM FROM RTT 12 REFERENCE VALUE 25-HYDROXY D TOTAL (D2+D3) Optimum levels in the healthy population are 20-50, patients with bone disease may benefit from higher levels within this range. Test Performed by: [place] [address] Operating System Designer: Chuckie Leblanc II, M.D., Ph.D. 13 Testing performed by [facility]. 14 Testing performed by Liquid Chromatography-Tandem Mass Spectrometry (LC-MS/MS). Test Performed by: [place] [address] Operating System Designer: Roman Roblero III, M.D. 15 3 sst's; 1 lav 16 Vitamin D deficiency has been defined by the [place] [employer] and an Endocrine Society practice guideline as a level of serum 25-OH vitamin D less than 20 ng/mL (1,2). The Endocrine Society went on to further define vitamin D insufficiency as a level between 21 and 29 ng/mL (2). 1. IOM ([place] [employer]). 2010. Dietary reference intakes for calcium and D. [place]: The National Academies Press. 2. Juan MF, Tobi NC, Lew HUMPHREY, et al. Evaluation, treatment, and prevention of vitamin D deficiency: an Endocrine Society clinical practice guideline. JCEM. 2010; 96(7):1911-30. 17 >59 mL/min/1.73m2 18 >59 mL/min/1.73m2 Note: Persistent reduction for 3 months or more in an eGFR <60 mL/min/1.73m2 defines CKD. Patients with eGFR values >=60 mL/min/1.73m2 may also have CKD if evidence of persistent proteinuria is present. Additional information may be found at www.kidney.org/professionals/kdoqi. 19 SPLIT SPECIMEN 5 POUR OFF TUBES WITH FROZEN PLASMA 2 PURPLE TOP TUBES; . SINGLE G-61616-M MUTATION IDENTIFIED (HETEROZYGOTE) . Comment: A point mutation ([id number]) in the factor II (prothrombin) gene is the second most common cause of inherited thrombophilia. The incidence of this mutation in the [place] population is about 2% and in the population it is approximately 0.5%. This mutation is rare in the and population. Being heterozygous for a prothrombin mutation increases the risk for developing venous thrombosis about 2 to 3 times above the general population risk. Being homozygous for the prothrombin gene mutation increases the relative risk for venous thrombosis further, although it is not yet known how much further the risk is increased. In women heterozygous for the prothrombin gene mutation, the use of estrogen containing oral contraceptives increases the relative risk of venous thrombosis about 16 times and the risk of developing cerebral thrombosis is also significantly increased. In the prothrombin gene mutation increases risk for venous thrombosis and may increase risk for stillbirth, placental abruption, pre-eclampsia and growth restriction. If the patient possesses two or more congenital or acquired thrombophilic risk factors, the risk for thrombosis may rise to more than the sum of the risk ratios for the individual mutations. This assay detects only the prothrombin [id number] mutation and does not measure genetic abnormalities elsewhere in the genome. Other thrombotic risk factors may be pursued through systematic clinical laboratory analysis. These factors include the R506Q ([place]) mutation in the Factor V gene, plasma homocysteine levels, as well as testing for deficiencies of antithrombin III, protein C and protein S. Genetic Counselors are available for health care providers to discuss results at [phone] ([phone]). . Methodology: DNA analysis of the Factor II gene was performed by PCR amplification followed by restriction analysis. The diagnostic sensitivity is >99% for both. All the tests must be combined with clinical information for the most accurate interpretation. Molecular-based testing is highly accurate, but as in any laboratory test, diagnostic errors may occur. . Bhupindert SR, et al. Blood. 1996; 88:4758-0053. Lowell HOSKINS. Circulation. 2004; 110:e15-e18. Amor I, et al. Arterioscler Thromb Vasc Biol. 1999; 19:700-703. . Michael Mcdonald, Ph.D. Alicia Haddad, Ph.D. Allison Thomas, Ph.D. Promise Santana, Ph.D. Denisha Mcleod, Ph.D. Gregoria Oviedo M.Renzo. Natalie Licea, Ph.D. S. Matt AmezcuaBLauraSLaura, Ph.D. . 21 Negative: <15 Indeterminate: 15 - 20 Low-Med Positive: >20 - 80 High Positive: >80 22 Negative: <13 Indeterminate: 13 - 20 Low-Med Positive: >20 - 80 High Positive: >80 23 Negative: <12 Indeterminate: 12 - 20 Low-Med Positive: >20 - 80 High Positive: >80 24 RESULTS VERIFIED BY REPEAT ANALYISIS Procedures Date CPT Code Description Status Comment 09/15/2012 25551 Finger Or Heel Stick Completed 08/30/2012 96386 Finger Or Heel Stick Completed 08/18/2012 75062 Finger Or Heel Stick Completed 08/08/2012 20262 Finger Or Heel Stick Completed 07/31/2012 24290 Finger Or Heel Stick Completed 07/24/2012 66931 Finger Or Heel Stick Completed 07/21/2012 74695 Finger Or Heel Stick Completed 07/17/2012 61674 Finger Or Heel Stick Completed 07/14/2012 69547 Finger Or Heel Stick Completed 04/07/2002 73651 Injection Subcutaneous Or Completed 1ML KENOLOG 40MG/ML IM Intramuscular GLUT CJ Encounters Type Date Location Provider CPT E/M Dx Office Visit 02/18/2018 9:00a [place] [address] F43.22 R41.840 B37.0 J45.909 Z12.11 Office Visit 07/09/2017 10:40a Main Office Mira Prince M.D. 66493 F43.22 Office Visit 06/03/2017 3:20p [facility] Mira Prince M.D. 57614 R41.840 Z00.00 Z12.11 R23.8 Office Visit 03/16/2017 10:30a [facility] Dorota Varela, AUDIO VISUAL COLLECTIONS COORDINATOR 89112 B37.0 Office Visit 02/28/2017 7:00p Main Office Mira Prince M.D. 35851 R41.840 F43.22 Office Visit 02/01/2017 2:40p [facility] Mira Prince M.D. 05475 R41.840 Office Visit 05/17/2016 5:00p Main Office Mira Prince M.D. 23197 E78.2 R73.01 E55.9 L20.82 Z00.01 Z23 Office Visit 04/05/2016 2:00p Main Office Mira Prince M.D. 34059 F43.23 Office Visit 02/26/2016 1:40p [facility] Mira Prince M.D. 14092 F43.21 Office Visit 02/16/2016 11:00a Main Office Ghassan Elder M.D. 11990 F32.9 F41.9 Office Visit 06/10/2015 11:30a [facility] Bernardino Duggan M.D. 91277 J00 Office Visit 12/24/2014 9:30a [facility] Bernardino Duggan M.D. 39050 252.02 780.50 268.9 Office Visit 05/22/2014 6:30p Main Office Ninoska Manoj, [facility] 48946 682.8 Office Visit 02/25/2014 3:15p [facility] Bernardino Duggan M.D. 94989 883.0 V58.32 Office Visit 01/24/2014 3:50p Main Office Bernardino Duggan M.D. 32369 311 780.50 257.2 782.9 Office Visit 09/24/2013 11:30a [facility] Ruben Barillas M.D. 03817 296.31 257.2 268.9 780.50 Office Visit 08/23/2013 3:40p Main Office Ruben Barillas M.D. 96744 780.79 780.50 268.9 296.31 493.90 257.2 Office Visit 08/03/2013 2:40p Main Office Ghassan Elder M.D. 50360 780.52 296.31 493.90 Office Visit 10/20/2012 8:10a [facility] Ruben Barillas M.D. 32863 453.40 V58.61 Office Visit 07/21/2012 8:30a [facility] Ruben Barillas M.D. 79683 453.40 V58.61 729.5 Office Visit 06/28/2012 8:40a Main Office Ruben Barillas M.D. 61318 729.5 296.31 Office Visit 05/22/2012 7:30p Main Office POLLY Sarabia 15001 719.46 Office Visit 01/27/2012 3:10p Main Office Ruben Barillas M.D. 22054 723.4 296.31 682.9 Office Visit 01/13/2012 10:00a Main Office Ruben Barillas M.D. 46338 723.4 493.90 296.31 682.9 Office Visit 08/11/2006 9:15a Main Office Justine VanceSiena 32455 300.02 780.54 493.90 Office Visit 09/27/2005 2:00p Main Office Calvin Mcgovern M.D. 26575 372.72 Office Visit 03/15/2005 1:00p [facility] Bernardino Duggan M.D. 07100 300.02 Office Visit 10/08/2004 8:15p Main Office RENETTA Brennan 34577 473.9 Office Visit 07/13/2004 2:40p [facility] Bernardino Duggan M.D. 20458 780.54 Office Visit 05/28/2004 8:15p Main Office POLLY Craig 71002 473.9 490 Office Visit 02/28/2004 2:00p [facility] Sarita Cotter 96348 692.9 M.DLaura Office Visit 02/21/2004 1:20p [facility] Bernardino Duggan M.D. 98227 311 780.79 Office Visit 08/28/2003 7:40p Main Office Ghassan Elder M.D. 82792 780.79 465.9 Office Visit 07/16/2003 10:00a Main Office Bernardino Dgugan M.D. 73889 300.4 Office Visit 08/30/2002 2:10p Main Office Bernardino Duggan M.D. 47667 300.02 300.4 Office Visit 06/05/2002 4:40p Main Office Bernardino Duggan M.D. 54101 Office Visit 04/07/2002 11:50a Main Office Bernardino Duggan M.D. 35294 Office Visit 12/16/2001 10:50a Main Office Fortunato Sharma M.D. 46598 Office Visit 05/26/2001 11:00a Main Office Fortunato Sharma M.D. 73870 Office Visit 12/09/2000 3:00p Main Office Bernardino Duggan M.D. 28594 Office Visit 08/12/2000 2:40p [facility] Bernardino Duggan M.D. 70447 Plan of Care 03/31/2018 - Ninoska Aranda, Angel-CK13.29 Other disturbances of oral epithelium, including tongueAllComments:~B_~U_Medication Management~b_~u_ Patient Understands medications he's taking? Yes No Are there Barriers to Adherence? Yes No Has the patient been asked about herbal supplements and therapies, and OTC meds? Yes No ~B_~U_Care Plan~b_~u_1. Patient has been queried about patient's goals/preferences and functional/ lifestyle goals at relevant visits. If relevant, describe: na2. Treatment goals as explained to the patient: abovesx resolution , further eval 3. Are there barriers to meeting treatment goals? Yes No If Yes, please describe:4. Self-Management goals as described to the patient: Yes No stop the little smoking that you do , gentale oral hygiene andcall if no better refer to ent if sx persist
--- NOTE | 2018-04-26 03:51 | RAD ---
EXAM: CT Head Without Intravenous Contrast CLINICAL HISTORY: 52 years old, male; Injury or trauma; Injury Hit in head with tree branch; Initial encounter; Abrasion; Forehead; Additional info: Head injury TECHNIQUE: Axial computed tomography images of the head/brain without intravenous contrast. All CT scans at this facility use at least one of these dose optimization techniques: automated exposure control; mA and/or kV adjustment per patient size (includes targeted exams where dose is matched to clinical indication); or iterative reconstruction. COMPARISON: No relevant prior studies available. FINDINGS: Brain: Unremarkable. No hemorrhage. No significant white matter disease. No edema. Ventricles: Unremarkable. No ventriculomegaly. Bones/joints: Unremarkable. No acute fracture. Soft tissues: Unremarkable. Sinuses: Unremarkable as visualized. No acute sinusitis. Mastoid air cells: Unremarkable as visualized. No mastoid effusion. IMPRESSION: Normal head/brain CT.
[2018-04-26 04:46] VITALS: BP 106/63
== END | disposition home or self-care (01) ==
LOC: ED 02:23
DX: S09.90XA Unspecified injury of head, initial encounter (principal); W22.8XXA Striking against or struck by other objects, initial encounter; Y92.9 Unspecified place or not applicable; R55 Syncope and collapse; R51 Headache
CPT/HCPCS: 70450; 99282; A9270-GY